=== PATIENT | male | born 1995 | race African-American/Black ===

== ENCOUNTER 2017-01-09 16:34 | Emergency (ER) | payer MEDICAID ==
[~2017-01-09] VITALS: Ht 190.5 cm; Wt 138.0 kg
[2017-01-09 19:07] LABS: BASOPHILS % 0.6 % (0.0-2.0); DIFFERENTIAL COMMENT 0; HEMATOCRIT. 44.8 % (42.0-52.0); HEMOGLOBIN. 14.4 g/dL (14.0-18.0); LYMPHOCYTES % 33.4 % (20.0-50.0); MEAN CORPUSCULAR HEMOGLOBIN 24.3 pg (28.0-32.0); MEAN CORPUSCULAR HGB CONC 32.2 g/dL (31.0-37.0); MEAN CORPUSCULAR VOLUME 75.3 fL (80.0-94.0); MEAN PLATELET VOLUME 7.7 fl (7.4-10.4); PLATELET 289 x1000/uL (130-400); RED BLOOD CELL COUNT 5.95 mill/uL (4.7-6.1); RED CELL DISTRIBUTION WIDTH 14.6 % (11.6-14.6); WHITE BLOOD COUNT 11.4 x1000/uL (4.5-11.0)
[2017-01-09 19:13] LABS: PROTHROMBIN TIME 10.7 sec
[2017-01-09 19:14] LABS: ALBUMIN 4.2 g/dL (3.4-5.0); ANION GAP 16; CALCIUM 9.9 mg/dL (8.5-10.1); CARBON DIOXIDE 23 mEq/L (21-32); CHLORIDE 107 mEq/L (98-107); INDEX HEMOLYSI 1 (1-3); INDEX ICTERIC 1 (1-4); INDEX LIPEMIC 1 (1-3); UREA NITROGEN BLOOD 15 mg/dL (7-21)
[2017-01-09 19:17] LABS: ALANINE AMINOTRANSFERASE 23 IU/L (13-61); eGFR > 60 mL/min (>60)
[2017-01-09 19:55] VITALS: BP 136/76
== END 2017-01-09 20:06 | disposition home or self-care (01) ==
LOC: ER 19:36
DX: K64.9 Unspecified hemorrhoids (principal); J45.909 Unspecified asthma, uncomplicated; F12.10 Cannabis abuse, uncomplicated
CPT/HCPCS: 36415; 80053; 85025; 85610; 99284

== ENCOUNTER 2017-02-23 13:56 | Emergency (ER) | payer MEDICAID ==
[~2017-02-23] VITALS: Ht 190.5 cm; Wt 138.0 kg
[2017-02-23 14:17] VITALS: BP_DIAS 78
[2017-02-23] MEDS ORDERED: ONDANSETRON 4MG ODT PO ONE (15:15)
[2017-02-23] MEDS ORDERED: FAMOTIDINE 20MG TABLET PO ONE (15:15)
[2017-02-23 16:00] VITALS: BP_SYST 131
== END 2017-02-23 16:28 | disposition home or self-care (01) ==
LOC: ER 14:26
DX: K29.70 Gastritis, unspecified, without bleeding (principal); F12.10 Cannabis abuse, uncomplicated; J45.909 Unspecified asthma, uncomplicated
CPT/HCPCS: 99283; Q0162

== ENCOUNTER 2017-09-27 14:01 | Emergency (ER) | payer MEDICAID ==
[~2017-09-27] VITALS: Ht 190.5 cm; Wt 127.0 kg
[2017-09-27 14:29] VITALS: BP 161/58
[2017-09-27] MEDS ORDERED: IBUPROFEN 800MG TABLET PO ONE (16:30)
== END 2017-09-27 16:35 | disposition home or self-care (01) ==
LOC: ER 14:26
DX: J06.9 Acute upper respiratory infection, unspecified (principal); J45.909 Unspecified asthma, uncomplicated; F12.10 Cannabis abuse, uncomplicated
CPT/HCPCS: 87070; 87077; 87430; 99284

== ENCOUNTER 2017-09-28 05:51 | Emergency (ER) | payer MEDICAID ==
[~2017-09-28] VITALS: Ht 190.5 cm; Wt 125.0 kg
[2017-09-28 06:22] VITALS: BP 164/81
== END 2017-09-28 09:04 | disposition home or self-care (01) ==
LOC: ER 05:51
DX: J02.9 Acute pharyngitis, unspecified (principal); E66.9 Obesity, unspecified; F12.10 Cannabis abuse, uncomplicated
CPT/HCPCS: 99283; Z7610

== ENCOUNTER 2017-10-09 08:50 | Emergency (ER) | payer MEDICAID ==
[~2017-10-09] VITALS: Ht 190.5 cm; Wt 80.0 kg
[2017-10-09] MEDS ORDERED: DEXAMETHASONE 10 MG/ML VIAL IM ONE (11:30)
[2017-10-09] MEDS ORDERED: KETOROLAC 60MG/2ML VIAL IM ONE (11:30)
[2017-10-09 12:12] VITALS: BP 144/74
== END 2017-10-09 12:20 | disposition home or self-care (01) ==
LOC: ER 09:09
DX: J02.8 Acute pharyngitis due to other specified organisms (principal); B96.89 Other specified bacterial agents as the cause of diseases classified elsewhere; I10 Essential (primary) hypertension; J45.909 Unspecified asthma, uncomplicated; F12.10 Cannabis abuse, uncomplicated
CPT/HCPCS: 96372; 99284; J1100; J1885